=== PATIENT | male | born 1985 | race Two or more races ===

== ENCOUNTER 2021-09-26 17:41 | Emergency (ER) | payer SELFPAY ==
[2021-09-26 18:07] VITALS: BP 236/154; PULSE 90; RESP 18; TEMP 36.6; O2SAT 97; BMI 54.9
--- NOTE | 2021-09-26 18:12 | ECG_ITS ---
Test Reason : HYPERTENTION Blood Pressure : / mmHG Vent. Rate : 083 BPM Atrial Rate : 083 BPM P-R Int : 182 ms QRS Dur : 082 ms QT Int : 346 ms P-R-T Axes : 037 -18 063 degrees QTc Int : 406 ms Normal sinus rhythm with sinus arrhythmia Normal ECG No previous ECGs available Referred By: Generic ED Physician Electronically Signed By:BOB SHORE
[2021-09-26 18:24] LABS: Appearance Urine CLEAR; Color Urine YELLOW; Glucose Urine UA >=1000 MG/DL (NEG); Leukocyte Esterase Urine NEG (NEG); Nitrite Urine NEG (NEG); Urine Blood NEG (NEG); Urine Ketones NEG (NEG); Urine Protein NEG (NEG-TRACE)
[2021-09-26 18:42] LABS: Hematocrit 43.9 % (42.0-52.0); Hemoglobin 15.7 g/dl (14.0-18.0); Mean Corpuscular HGB Conc 35.8 g/dl (31.0-36.0); Mean Corpuscular Hemoglobin 29.7 pg (27.0-33.0); Mean Platelet Volume 9.2 fL (9.4-12.4); Platelet Count 268 X10*3/uL (160-400); Red Blood Count 5.29 X10*6/uL (4.60-5.80)
[2021-09-26 18:44] LABS: Squamous Epithelial Cell Urine 2+ /LPF
[2021-09-26 18:45] LABS: RBC Urine 0-2 /HPF (0); WBC Urine 0-2 /HPF (0-4)
[2021-09-26 18:56] LABS: Anion Gap 19 (12-20); Blood Urea Nitrogen 12 mg/dL (9-16); Calcium 9.5 mg/dL (8.4-10.2); Carbon Dioxide 23 mmol/L (22-29); Chloride 100 mmol/L (96-108); Estimated Glomerular Filt Rate > 60; Glucose Random 305 mg/dL (60-115); Potassium 5.1 mmol/L (3.3-5.1); Sodium 137 mmol/L (135-145)
[2021-09-26 21:42] VITALS: BP 200/107; PULSE 86; RESP 16
--- NOTE | 2021-09-26 21:49 | ED_ITS ---
HPI - General Adult General Chief complaint: Recheck/Abnormal Lab/Rx Stated complaint: high BP Time Seen by Provider: 09/26/21 21:49 Source: patient Mode of arrival: ambulatory Limitations: no limitations History of Present Illness HPI narrative: Patient with no significant past medical history did not have any physical for the last few years went for physical exam for driving , noticed to have blood pressure 180/120 patient denies any symptoms no headache no palpitation no chest pain Related Data Previous Rx's Medication Instructions Recorded blood-glucose meter (FreeStyle #1 ea 09/26/21 [place] Lite kit) lisinopril 20 1 tab PO DAILY #90 tabs 09/26/21 mg-hydrochlorothiazide 25 mg tablet metformin 1,000 mg tablet 1,000 mg PO BID #180 tabs 09/26/21 Allergies Allergy/AdvReac Type Severity Reaction Status Date / Time No Known Allergies Allergy Verified 09/26/21 21:56 Review of Systems Review of Systems: Yes all other systems are reviewed and are negative [facility] Past Medical History Medical History (Updated 09/26/21 @ 23:17 by Jabier Hager MD) Diabetes mellitus Hypertension Social History Social History Alcohol intake: never Patient Tobacco Use Status: Never used Tobacco Use of substances other than those prescribed or required for medical reasons: Yes Substance Use Type: Marijuana Advance Directives: No Advance Directives Information Provided: No Physical Exam ED Vital Signs: Vital Signs - 24 hr 09/26/21 18:07 09/26/21 21:42 09/26/21 22:17 Temperature 98 F 97.8 F Pulse Rate 90 86 86 Respiratory Rate 18 16 20 Blood Pressure 236/154 H 200/107 H 178/110 H Pulse Oximetry 97 98 Oxygen Delivery Method Room Air Room Air 09/26/21 23:00 Temperature Pulse Rate Respiratory Rate Blood Pressure 166/91 H Pulse Oximetry Oxygen Delivery Method BMI result Body Mass Index 54.9 Appearance: Alert. Oriented X3. No acute distress obese. Eyes: PERRLA, No Nystagmus ENT: Pharynx normal. Oral Mucosa moist Neck: Normal inspection. Neck supple. CVS: Normal heart rate and rhythm. Pulses normal. Respiratory: No respiratory distress. Equal air entry bilateral, no wheezing/rales/rhonchi Abdomen: Soft and nontender. Bowel sounds are present, no mass palpable, no CVA tenderness Skin: Skin warm and dry. Normal skin color. Normal skin turgor. Extremities: No lower extremity edema. No calf tenderness Neuro: Oriented X 3. No motor deficit. Medical Decision Making MDM Narrative Medical decision making narrative: 2229 Patient with new onset hypertension and diabetes with obesity and family history of diabetes will start patient on Stone inhibitors and metformin blood pressure improved to 164/92 and blood sugar to 284 Lab Data Lab results reviewed: Yes I reviewed the patient's lab results. Result diagrams: 09/26/21 18:28 09/26/21 18:28 Labs: Lab Results 09/26/21 09/26/21 09/26/21 Range/Units 18:17 18:28 18:28 WBC 9.0 (4.8-10.8) X10*3/uL RBC 5.29 (4.60-5.80) X10*6/uL Hgb 15.7 (14.0-18.0) g/dl Hct 43.9 (42.0-52.0) % MCV 83.0 (80.0-98.0) fL MCH 29.7 (27.0-33.0) pg MCHC 35.8 (31.0-36.0) g/dl RDW 12.0 (11.0-16.0) % Plt Count 268 (160-400) X10*3/uL MPV 9.2 L (9.4-12.4) fL Absolute Nucleated RBC 0.000 (0.0-0.012) X10*3/uL Nucleated RBC % (auto) 0.0 (0.0-0.2) /100WBC Sodium 137 (135-145) mmol/L Potassium 5.1 (3.3-5.1) mmol/L Chloride 100 (96-108) mmol/L Carbon Dioxide 23 (22-29) mmol/L Anion Gap 19 (12-20) BUN 12 (9-16) mg/dL Creatinine 0.80 (0.5-1.4) mg/dL Estim Creat Clear Calc 173.0 Estimated GFR > 60 Random Glucose 305 H (60-115) mg/dL Calcium 9.5 (8.4-10.2) mg/dL Urine Color YELLOW Urine Appearance CLEAR Urine pH 6.0 (5.0-8.0) Ur Specific [place] 1.020 (1.005-1.025) Urine Protein NEG (NEG-TRACE) MG/DL Urine Glucose (UA) >=1000 H (NEG) MG/DL Urine Ketones NEG (NEG) MG/DL Urine Blood NEG (NEG) Urine Nitrite NEG (NEG) Ur Leukocyte Esterase NEG (NEG) Urine RBC 0-2 (0) /HPF Urine WBC 0-2 (0-4) /HPF Ur Squamous Epith Cells 2+ /LPF Urine Bacteria NONE /LPF ECG Data Attestation: I personally reviewed and interpreted this ECG as follows: Interpretation: Normal sinus rhythm heart rate 83 beats per minute normal interval normal axis impression normal EKG Discharge Plan Discharge Clinical Impression: Hypertension, Diabetes mellitus Patient Disposition: Home, Self-Care Instructions: Type 2 Diabetes in Adults: New Diagnosis (ED), Hypertension (ED) Additional Instructions: Decrease salt intake Diabetic diet as advised Medication as prescribed Follow-up with PCP/building construction inspector Check blood sugar twice daily Prescriptions: New lisinopril-hydrochlorothiazide 20-25 mg tablet 1 tab PO DAILY Qty: 90 2RF (DME) blood-glucose meter [FreeStyle [place] Lite] Kit See Rx Instructions .Route Qty: 1 0RF Rx Instructions: As directed metformin 1,000 mg tablet 1,000 mg PO BID Qty: 180 3RF Referrals: Spring Reza MD [Physician] - 1 week
[2021-09-26] MEDS: metFORMIN HCl 1,000 MG TABLET 1000 MG PO (22:03)
[2021-09-26] MEDS: lisinopriL 20 MG TABLET PO (22:04)
[2021-09-26] MEDS: Metoprolol Tartrate 50 MG TABLET PO (22:04)
[2021-09-26 22:17] VITALS: BP 178/110; PULSE 86; RESP 20; TEMP 36.6; O2SAT 98
[2021-09-26 23:00] VITALS: BP 166/91
[2021-09-26 23:24] LABS: Glucose, Whole Blood 248 mg/dL (60-115)
== END 2021-09-26 23:29 | disposition home or self-care (01) ==
PROVIDERS: Emergency Provider Internal Medicine
DX: E11.9 Type 2 diabetes mellitus without complications (principal); I10 Essential (primary) hypertension; F12.90 Cannabis use, unspecified, uncomplicated; E66.9 Obesity, unspecified; Z68.43 Body mass index [BMI] 50.0-59.9, adult
CPT/HCPCS: 36415; 80048; 81001; 82947; 85027; 93005; 99283; 99284

== ENCOUNTER 2021-09-30 11:52 | Emergency (ER) | payer OTHER, SELFPAY ==
--- NOTE | ~2021-09-30 | XR_ITS ---
EXAMINATION: XR CHEST CLINICAL INFORMATION: Chest pressure. COMPARISON: None TECHNIQUE: Frontal view of the chest was obtained. FINDINGS: No significant abnormality is noted involving the heart, lungs, mediastinum, bony thorax or soft tissues. XR/XR chest 1V IMPRESSION: No acute cardiopulmonary process.
[2021-09-30 11:55] VITALS: BP 165/125; PULSE 92; RESP 18; TEMP 36.1; O2SAT 97; BMI 54.9
--- NOTE | 2021-09-30 11:58 | ECG_ITS ---
Test Reason : chest pressure Blood Pressure : / mmHG Vent. Rate : 093 BPM Atrial Rate : 093 BPM P-R Int : 180 ms QRS Dur : 078 ms QT Int : 334 ms P-R-T Axes : 042 -21 057 degrees QTc Int : 415 ms Normal sinus rhythm Normal ECG When compared with ECG of 26-SEP-2021 18:36, No significant change was found Referred By: Generic ED Physician Electronically Signed By:CAL GIRON MD
[2021-09-30 12:15] LABS: MANUAL DIFF FLAG NO
[2021-09-30 12:17] LABS: Basophils Absolute Auto 0.1 X10*3/uL (0.0-0.2); Basophils Percent Auto 0.5 % (0-2); Eosinophils Absolute Auto 0.1 X10*3/uL (0.0-0.4); Eosinophils Percent Auto 1.2 % (0-4); Hematocrit 46.6 % (42.0-52.0); Hemoglobin 16.5 g/dl (14.0-18.0); Imm Gran Abs Auto 0.03 X10*3/uL (0.00-0.03); Imm Gran Pct Auto 0.3 % (0.0-0.4); Lymphocytes Absolute Auto 2.8 X10*3/uL (1.2-4.9); Lymphocytes Percent Auto 26.9 % (20-40); Mean Corpuscular HGB Conc 35.4 g/dl (31.0-36.0); Mean Corpuscular Hemoglobin 29.4 pg (27.0-33.0); Mean Corpuscular Volume 82.9 fL (80.0-98.0); Mean Platelet Volume 9.1 fL (9.4-12.4); Monocytes Absolute Auto 0.6 X10*3/uL (0.1-1.2); Monocytes Percent Auto 5.4 % (2-11); Neutrophils Absolute Auto 6.8 x10*3/uL (2.0-8.3); Neutrophils Percent Auto 65.7 % (45-73); Platelet Count 287 X10*3/uL (160-400); Red Blood Count 5.62 X10*6/uL (4.60-5.80); Red Cell Distribution Width 11.9 % (11.0-16.0); White Blood Count 10.3 X10*3/uL (4.8-10.8)
[2021-09-30 12:31] LABS: Anion Gap 20 (12-20); Blood Urea Nitrogen 15 mg/dL (9-16); Calcium 9.9 mg/dL (8.4-10.2); Carbon Dioxide 23 mmol/L (22-29); Chloride 96 mmol/L (96-108); Creatinine Clr Calc Pharmacy 150.4; Estimated Glomerular Filt Rate > 60; Glucose Random 316 mg/dL (60-115); Potassium 4.4 mmol/L (3.3-5.1); Sodium 135 mmol/L (135-145)
[2021-09-30 12:36] LABS: Troponin-I High Sensitivity < 3.5 ng/L (<3.5-35.0)
[2021-09-30 16:43] VITALS: BP 159/105; PULSE 105; RESP 14; TEMP 36.8; O2SAT 96
--- NOTE | 2021-09-30 16:53 | ED_ITS ---
HPI - Chest Pain General Chief Complaint: Chest Pain Stated Complaint: Chest pain/SOB/Weakness Time Seen by Provider: 09/30/21 16:53 Source: patient Mode of arrival: ambulatory Limitations: no limitations History of Present Illness HPI narrative: Patient with new diagnosis of hypertension diabetes seen here on 09/26 started on metformin and lisinopril since then patient complaining of abdominal discomfort diarrhea with body aches patient did not take his medication today and blood pressure was elevated when arrived it was 165/125 with blood sugar of 316. No nausea no vomiting Related Data Previous Rx's Medication Instructions Recorded blood-glucose meter (FreeStyle #1 ea 09/26/21 [place] Lite kit) lisinopril 20 1 tab PO DAILY #90 tabs 09/26/21 mg-hydrochlorothiazide 25 mg tablet metformin 1,000 mg tablet 1,000 mg PO BID #180 tabs 09/26/21 glipizide 5 mg tablet 5 mg PO DAILY #90 tabs 09/30/21 Allergies Allergy/AdvReac Type Severity Reaction Status Date / Time No Known Allergies Allergy Verified 09/30/21 11:55 Review of Systems Review of Systems: Yes all other systems are reviewed and are negative ON LICENSE OF [facility] Past Medical History Medical History Diabetes mellitus Hypertension Social History Social History Alcohol intake: never Patient Tobacco Use Status: Never used Tobacco Substance Use Type: Marijuana Substance Use Frequency: Occasionally Last Used Substance: Days (ago) Advance Directives: No Advance Directives Information Provided: Yes Physical Exam Vital Signs: Vital Signs: Last Vital Signs Temp 98.0 F 09/30/21 19:32 Pulse 81 09/30/21 19:32 Resp 16 09/30/21 19:32 BP 136/86 09/30/21 19:32 Pulse Ox 98 09/30/21 19:32 O2 Del Method 09/30/21 19:32 BMI result Body Mass Index 54.9 Appearance: Alert. Oriented X3. No acute distress. Eyes: No pallor or icterus ENT: Pharynx normal. Oral Mucosa moist Neck: Normal inspection. Neck supple. CVS: Normal heart rate and rhythm. Pulses normal. Respiratory: No respiratory distress. Equal air entry bilateral, no wheezing/rales/rhonchi Abdomen: Soft and nontender. Bowel sounds are present, no mass palpable, no CVA tenderness Skin: Skin warm and dry. Normal skin color. Normal skin turgor. Extremities: No lower extremity edema. No calf tenderness Neuro: Oriented X 3. MDM - Chest Pain MDM Narrative Medical decision making narrative: 193 Patient with recent diagnosis of diabetes and hypertension Ms. his medicat ion today came with GI symptoms likely from metformin use, blood sugar still elevated to 316 which improved after IV hydration to 192 blood pressure also improved after lisinopril Lab Data Attestation: I reviewed the patient's lab results. Result diagrams: 09/30/21 12:10 09/30/21 12:10 Labs: Lab Results 09/30/21 09/30/21 09/30/21 Range/Units 12:10 12:10 12:10 WBC 10.3 (4.8-10.8) X10*3/uL RBC 5.62 (4.60-5.80) X10*6/uL Hgb 16.5 (14.0-18.0) g/dl Hct 46.6 (42.0-52.0) % MCV 82.9 (80.0-98.0) fL MCH 29.4 (27.0-33.0) pg MCHC 35.4 (31.0-36.0) g/dl RDW 11.9 (11.0-16.0) % Plt Count 287 (160-400) X10*3/uL MPV 9.1 L (9.4-12.4) fL Immature Gran % (Auto) 0.3 (0.0-0.4) % Neut % (Auto) 65.7 (45-73) % Lymph % (Auto) 26.9 (20-40) % [place] % (Auto) 5.4 (2-11) % Eos % (Auto) 1.2 (0-4) % Baso % (Auto) 0.5 (0-2) % Lymph # (Auto) 2.8 (1.2-4.9) X10*3/uL [place] # (Auto) 0.6 (0.1-1.2) X10*3/uL Eos # (Auto) 0.1 (0.0-0.4) X10*3/uL Baso # (Auto) 0.1 (0.0-0.2) X10*3/uL Abs Immat Gran (auto) 0.03 (0.00-0.03) X10*3/uL Absolute Neuts (auto) 6.8 (2.0-8.3) x10*3/uL Absolute Nucleated RBC 0.000 (0.0-0.012) X10*3/uL Nucleated RBC % (auto) 0.0 (0.0-0.2) /100WBC Sodium 135 (135-145) mmol/L Potassium 4.4 (3.3-5.1) mmol/L Chloride 96 (96-108) mmol/L Carbon Dioxide 23 (22-29) mmol/L Anion Gap 20 (12-20) BUN 15 (9-16) mg/dL Creatinine 0.92 (0.5-1.4) mg/dL Estim Creat Clear Calc 150.4 Estimated GFR > 60 POC Glucose (60-115) mg/dL Random Glucose 316 H (60-115) mg/dL Calcium 9.9 (8.4-10.2) mg/dL Troponin I High Sens < 3.5 (<3.5-35.0) ng/L COVID-19 ([facility]) (Negative) COVID-19 Clin Com 09/30/21 09/30/21 Range/Units 17:55 19:30 WBC (4.8-10.8) X10*3/uL RBC (4.60-5.80) X10*6/uL Hgb (14.0-18.0) g/dl Hct (42.0-52.0) % MCV (80.0-98.0) fL MCH (27.0-33.0) pg MCHC (31.0-36.0) g/dl RDW (11.0-16.0) % Plt Count (160-400) X10*3/uL MPV (9.4-12.4) fL Immature Gran % (Auto) (0.0-0.4) % Neut % (Auto) (45-73) % Lymph % (Auto) (20-40) % [place] % (Auto) (2-11) % Eos % (Auto) (0-4) % Baso % (Auto) (0-2) % Lymph # (Auto) (1.2-4.9) X10*3/uL [place] # (Auto) (0.1-1.2) X10*3/uL Eos # (Auto) (0.0-0.4) X10*3/uL Baso # (Auto) (0.0-0.2) X10*3/uL Abs Immat Gran (auto) (0.00-0.03) X10*3/uL Absolute Neuts (auto) (2.0-8.3) x10*3/uL Absolute Nucleated RBC (0.0-0.012) X10*3/uL Nucleated RBC % (auto) (0.0-0.2) /100WBC Sodium (135-145) mmol/L Potassium (3.3-5.1) mmol/L Chloride (96-108) mmol/L Carbon Dioxide (22-29) mmol/L Anion Gap (12-20) BUN (9-16) mg/dL Creatinine (0.5-1.4) mg/dL Estim Creat Clear Calc Estimated GFR POC Glucose 192 H (60-115) mg/dL Random Glucose (60-115) mg/dL Calcium (8.4-10.2) mg/dL Troponin I High Sens (<3.5-35.0) ng/L COVID-19 (MIKE) Negative (Negative) COVID-19 Clin Com See Note Discharge Plan Discharge Clinical Impression: Diabetes mellitus, Hypertension Patient Disposition: Home, Self-Care Instructions: Type 2 Diabetes in Adults: New Diagnosis (ED), Hypertension (ED) Additional Instructions: Drink plenty of fluids Continue your medications Add glipizide 5 mg daily for better diabetes control Follow-up with your PCP Prescriptions: New glipizide 5 mg tablet 5 mg PO DAILY Qty: 90 0RF No Action lisinopril-hydrochlorothiazide 20-25 mg tablet 1 tab PO DAILY Qty: 90 2RF (DME) blood-glucose meter [FreeStyle [place] Lite] Kit See Rx Instructions .Route Qty: 1 0RF Rx Instructions: As directed metformin 1,000 mg tablet 1,000 mg PO BID Qty: 180 3RF Stand Alone Forms: Work/School Release
[2021-09-30 17:01] VITALS: PULSE 90
[2021-09-30 17:50] VITALS: BP 167/99; PULSE 92; RESP 16; TEMP 36.8; O2SAT 98
[2021-09-30] MEDS: lisinopriL 20 MG TABLET PO (18:16)
[2021-09-30] MEDS: Metoprolol Tartrate 50 MG TABLET PO (18:16)
[2021-09-30 18:21] LABS: COVID-19 Test Negative (Negative)
[2021-09-30] MEDS: 0.9 % Sodium Chloride 1,000 ML 999 ML IV (18:21)
[2021-09-30 19:32] VITALS: BP 136/86; PULSE 81; RESP 16; TEMP 36.7; O2SAT 98
[2021-09-30 19:37] LABS: Glucose, Whole Blood 192 mg/dL (60-115)
[2021-09-30 20:00] VITALS: BP 137/86; PULSE 71; RESP 16; TEMP 36.1; O2SAT 98
[2021-10-01 05:24] LABS: Estimated Average Glucose 255 mg/dL; Hemoglobin A1c % 10.5 %
== END 2021-09-30 20:34 | disposition home or self-care (01) ==
PROVIDERS: Emergency Provider Internal Medicine
DX: R10.13 Epigastric pain (principal); I10 Essential (primary) hypertension; E11.9 Type 2 diabetes mellitus without complications; Z20.822 Contact with and (suspected) exposure to COVID-19; F12.90 Cannabis use, unspecified, uncomplicated; Z79.84 Long term (current) use of oral hypoglycemic drugs; Z79.899 Other long term (current) drug therapy
CPT/HCPCS: 36415; 71045; 80048; 82947; 83036; 84484; 85025; 87635; 93005; 96360; 99284; 99285